=== PATIENT | male | born 2000 | race African-American/Black ===

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

== ENCOUNTER 2022-06-23 19:20 | Emergency (ER) | payer OTHER ==
[2022-06-23 19:48] VITALS: BP 119/72; PULSE 68; RESP 19; TEMP 98.5; BMI 21.6
== END 2022-06-23 21:18 | disposition home or self-care (01) ==
LOC: JER 19:20
DX: J06.9 Acute upper respiratory infection, unspecified (principal)
CPT/HCPCS: 0241U-QW; 99283-25

== ENCOUNTER 2022-09-06 23:28 | Emergency (ER) | payer OTHER ==
[2022-09-06 23:45] VITALS: BP 117/83; PULSE 86; RESP 20; TEMP 98.1; BMI 25.0
[2022-09-07] MEDS ORDERED: ACETAMINOPHEN 500 MG TABLET (FP) PO ONE (00:26)
[2022-09-07] MEDS ORDERED: KETOROLAC TROMETHAMINE 30 MG/1 ML VIAL IM ONE (00:27)
[2022-09-07] MEDS ORDERED: ACETAMINOPHEN 325 MG TABLET (FP) ONE (00:32)
== END 2022-09-07 01:50 | disposition home or self-care (01) ==
LOC: JER 23:28
DX: R07.0 Pain in throat (principal)
CPT/HCPCS: 0241U-QW; 87651; 99283-25

== ENCOUNTER 2023-05-20 03:22 | Emergency (ER) | payer OTHER ==
[2023-05-20 03:39] VITALS: BP 117/76; PULSE 97; RESP 18; TEMP 98.3; BMI 22.8
[2023-05-20 05:39] LABS: THROAT:GRP A STREP DETECTED (NOTDETECTED)
[2023-05-20] MEDS ORDERED: AMOXICILLIN 500 MG CAPSULE (FP) PO ONE (05:51)
[2023-05-20] MEDS ORDERED: AMOXICILLIN 250 MG CAPSULE ONE (05:54)
== END 2023-05-20 06:15 | disposition home or self-care (01) ==
LOC: JER 03:22
DX: R07.0 Pain in throat (principal); J02.0 Streptococcal pharyngitis; Z20.822 Contact with and (suspected) exposure to COVID-19
CPT/HCPCS: 0241U-QW; 87070; 87077; 87651; 99283-25